=== PATIENT | female | born 1985 | race Two or more races ===

== ENCOUNTER 2018-01-11 10:36 | Emergency (ER) | payer MEDICAID ==
[~2018-01-11] VITALS: Ht 162.6 cm; Wt 70.0 kg
[2018-01-11] MEDS ORDERED: NAPR-679 PO (10:54)
[2018-01-11] MEDS ORDERED: KETOROLAC 30MG/ML VIAL IV STA (12:05)
[2018-01-11] MEDS ORDERED: FAMOTIDINE 20MG/2ML VIAL IV STA (12:05)
[2018-01-11] MEDS ORDERED: VISCOUS LIDOCAINE 2% 15 ML UDC PO STA (12:05)
[2018-01-11] MEDS ORDERED: MAGNESIUM/ALUMINUM HYDROXIDE/SIMETHICONE 30ML UDC PO STA (12:05)
[2018-01-11] MEDS ORDERED: METOCLOPRAMIDE HCL 10MG/2ML VIAL IV ONE (12:15)
[2018-01-11 12:27] LABS: BASOPHILS % 0.7 % (0.0-2.0); EOSINOPHILS % 0.4 % (0.0-5.0); HEMATOCRIT. 42.4 % (36.0-48.0); HEMOGLOBIN. 14.1 g/dL (12.0-16.0); LYMPHOCYTES % 22.6 % (20.0-50.0); MEAN CORPUSCULAR HEMOGLOBIN 25.8 pg (28.0-32.0); MEAN CORPUSCULAR VOLUME 77.8 fL (81.0-99.0); MEAN PLATELET VOLUME 8.2 fl (7.4-10.4); MONOCYTES % 8.2 % (2.0-8.0); NEUTROPHILS % 68.1 % (40.0-76.0); PLATELET 277 x1000/uL (130-400); RED BLOOD CELL COUNT 5.45 mill/uL (4.2-5.4); RED CELL DISTRIBUTION WIDTH 15.3 % (11.6-14.6)
[2018-01-11 12:32] LABS: CHLORIDE 105 mEq/L (98-107)
[2018-01-11 12:37] LABS: PROTHROMBIN TIME 10.8 sec (9.4-11.6)
[2018-01-11] MEDS ORDERED: PREDNISONE 20MG TABLET PO STA (12:54)
[2018-01-11] MEDS ORDERED: ALBUTEROL (0.083%) 2.5MG/3ML NEB HHN STA (12:54)
[2018-01-11 14:12] VITALS: BP 122/70
== END 2018-01-11 14:14 | disposition home or self-care (01) ==
LOC: ER 11:07
DX: J45.901 Unspecified asthma with (acute) exacerbation (principal); K21.9 Gastro-esophageal reflux disease without esophagitis
CPT/HCPCS: 36415; 71045; 80053; 81025; 83690; 85025; 85610; 93005; 94640; 96374; 96375; 99285; J1885; J2765; J3490; J7512; J7611; Z7610